=== PATIENT | female | born 1945 | race Caucasian/White ===

== ENCOUNTER 2020-05-21 14:04 | Inpatient (IN) ==
[2020-05-21] MEDS ORDERED: HYDROmorphone 1 MG/ML SYRINGE IV ONE (14:36)
--- NOTE | 2020-05-21 14:49 | Emergency Department Note ---
Lower Extremity Injury HPI General Chief Complaint: Extremity Injury, Lower Stated Complaint: Tripped, L hip pain Time Seen by Provider: 05/21/20 14:24 Source: EMS Mode of arrival: EMS History of Present Illness HPI Narrative: Narrative: 74-year-old female patient brought into the emergency department via ambulance with chief complaint of left hip pain. Patient mentions she was in her yard when her large (200 pound) Mel[place] accidentally struck her in she fell to the ground. She mentions landing on gravel and pain to her left hip.. She was unable to bear weight since that time. EMS was contacted and brought her in for evaluation. While in route she was given 100 mcg of fentanyl. Upon arrival, she denies any considerable pain to her left hip until she tries to move it. She denies hitting her head or loss of consciousness. She denies any sites of injury. She denies any previous trauma to her left hip. Related Data Home Medications Medication Instructions Recorded Confirmed cholecalciferol (vitamin D3) 125 5,000 unit PO QDAY 01/21/18 04/01/20 mcg (5,000 unit) tablet clobetasol 0.05 % scalp solution 1 applic TOPICAL BID 01/21/18 04/01/20 omega-3 fatty acids 100 mg 300 mg PO QDAY tab 02/25/18 04/01/20 chewable tablet selenium PO QDAY 02/25/18 04/01/20 zinc 50 mg tablet 50 mg PO QDAY 02/25/18 04/01/20 halobetasol propionate 0.05 % 1 applic TOPICAL BID 07/08/19 04/01/20 topical cream Previous Rx's Medication Instructions Recorded C-naltrexone 3 mg PO HS #100 cap 07/08/19 levothyroxine 88 mcg tablet 88 mcg PO .COMPLEX #90 tab 07/08/19 zolpidem 10 mg tablet 10 mg PO QHS PRN #30 tab 12/22/19 hydroxychloroquine 200 mg tablet 200 mg PO BID #180 tab 04/01/20 Allergies Allergy/AdvReac Type Severity Reaction Status Date / Time ketorolac [From Toradol] AdvReac Intermediate branch Verified 05/21/20 18:56 retinal vein occlusion triamcinolone [From Kenalog] AdvReac Intermediate branch Verified 05/21/20 18:56 retinal vein occlusion Review of Systems ROS ROS Narrative: Narrative: All systems ED: reviewed and negative except as stated. 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) Keratosis (Chronic) Hot flashes (Chronic) Elbow pain, left (Chronic) Tendinitis of left elbow (Chronic) Sinus bradycardia, chronic (Chronic) Branch retinal vein occlusion (Chronic) Knee pain, left (Chronic) Insulin resistance syndrome (Chronic) Decreased visual acuity (Chronic) Nuclear sclerosis (Chronic) Cataract, left eye (Chronic) Weight gain (Chronic) Preoperative cardiovascular examination (Chronic) Knee pain, right (Chronic) Cervical radiculopathy (Chronic) Muscle spasm (Chronic) Headache (Chronic) Disturbance of skin sensation (Chronic) Anxiety state, unspecified (Chronic) Unspecified hypothyroidism (Chronic) Low back pain (Chronic) Dyssomnia (Chronic) Hypoxemia (Chronic) Insomnia (Chronic) Obstructive sleep apnea (Chronic) Anxiety with depression (Chronic) Urinary frequency (Chronic) UTI (urinary tract infection) (Chronic) Bladder spasm (Chronic) Keysha's thyroiditis (Chronic) Hyperlipidemia (Chronic) Fluid retention (Chronic) Decreased hearing of right ear (Chronic) Ear pain, left (Chronic) Rhinitis, allergic (Chronic) Vision changes (Chronic) Encounter for long-term (current) use of medications (Chronic) Vitamin D deficiency (Chronic) Polycythemia (Chronic) Sleep apnea (Chronic) Kidney disease, chronic, stage III (GFR 30-59 ml/min) (Chronic) Hypercalcemia (Chronic) Encounter for medication counseling (Chronic) Fatigue (Chronic) SLE (systemic lupus erythematosus) (Chronic) Rash and other nonspecific skin eruption (Acute) Height loss (Chronic) Pseudophakia (Chronic) Blepharitis (Chronic) Macular edema (Chronic) Dry eye (Chronic) Rash of unknown cause (Chronic) Stress (Chronic) Leg cramps (Chronic) Heart palpitations (Chronic) Nasal congestion (Chronic) Loss of balance (Chronic) Lightheadedness (Chronic) Hypertension (Chronic) Vertigo (Chronic) Seasonal allergies (Chronic) Dizziness (Chronic) Hair loss (Chronic) Cough (Chronic) Neck swelling (Chronic) Depression (Chronic) Butterfly rash (Chronic) LIZBETH positive (Acute) Anxiety (Chronic) Sicca syndrome with keratoconjunctivitis (Chronic) Multiple joint pain (Chronic) Skin rash (Chronic) Renal insufficiency (Chronic) Cervical spine pain (Chronic) Concussion (Chronic) Thyroid nodule (Chronic) Legally blind in left eye, as defined in [place] (Chronic) Bloating (Chronic) Chronically dry eyes (Chronic) Facial rash (Chronic) Kidney disease (Chronic) Medical History LIZBETH positive (Acute) Anxiety (Chronic) Anxiety state, unspecified (Chronic) Anxiety with depression (Chronic) Asthma (Chronic) Bladder spasm (Chronic) Blepharitis (Chronic) Bloating (Chronic) Branch retinal vein occlusion (Chronic) Butterfly rash (Chronic) Cataract, left eye (Chronic) Cervical radiculopathy (Chronic) Cervical spine pain (Chronic) Chronically dry eyes (Chronic) Concussion (Chronic) Cough (Chronic) Decreased hearing of right ear (Chronic) Decreased visual acuity (Chronic) 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) Depression (Chronic) Disturbance of skin sensation (Chronic) Dizziness (Chronic) Dry eye (Chronic) Dyssomnia (Chronic) Ear pain, left (Chronic) Elbow pain, left (Chronic) Encounter for long-term (current) use of medications (Chronic) Encounter for medication counseling (Chronic) Facial rash (Chronic) Fatigue (Chronic) Fluid retention (Chronic) Hair loss (Chronic) Keysha's thyroiditis (Chronic) Headache (Chronic) Heart palpitations (Chronic) Height loss (Chronic) Hot flashes (Chronic) Hypercalcemia (Chronic) Hyperlipidemia (Chronic) Hypertension (Chronic) Hypoxemia (Chronic) Insomnia (Chronic) Insulin resistance syndrome (Chronic) Keratosis (Chronic) Kidney disease (Chronic) Kidney disease, chronic, stage III (GFR 30-59 ml/min) (Chronic) Knee pain, left (Chronic) Knee pain, right (Chronic) Leg cramps (Chronic) Legally blind in left eye, as defined in [place] (Chronic) Lightheadedness (Chronic) Loss of balance (Chronic) Low back pain (Chronic) Macular edema (Chronic) Multiple joint pain (Chronic) Muscle spasm (Chronic) Nasal congestion (Chronic) Neck swelling (Chronic) Nuclear sclerosis (Chronic) Obstructive sleep apnea (Chronic) Osteopenia (Chronic) Polycythemia (Chronic) Preoperative cardiovascular examination (Chronic) Pseudophakia (Chronic) Rash and other nonspecific skin eruption (Acute) Rash of unknown cause (Chronic) Renal insufficiency (Chronic) Rhinitis, allergic (Chronic) Seasonal allergies (Chronic) Sicca syndrome with keratoconjunctivitis (Chronic) Sinus bradycardia, chronic (Chronic) Skin rash (Chronic) SLE (systemic lupus erythematosus) (Chronic) Sleep apnea (Chronic) Stress (Chronic) Tendinitis of left elbow (Chronic) Thyroid nodule (Chronic) Unspecified hypothyroidism (Chronic) Urinary frequency (Chronic) UTI (urinary tract infection) (Chronic) Vertigo (Chronic) Vision changes (Chronic) Vitamin D deficiency (Chronic) Weight gain (Chronic) Surgical History Hx of cataract surgery (Acute) Hx of left knee surgery (Acute ~01/2016) Family History Sister Thyroid cancer Pancreatitis Mother Arthritis Father Cancer Arthritis Other Lupus Social History Smoking Status: Never smoker Alcohol Intake Frequency: does not drink Substance Use: does not use Exam Narrative Narrative: Narrative: General General appearance: Present other (Well-developed, well-nourished, 74-year-old female patient laying right lateral recumbent on the emergency room gurney in no acute distress. She is afebrile, hypertensive blood pressure 149/102, other vital signs normal.) Head Head: Present atraumatic and normocephalic Eye Eye: Present normal appearance, PERRL and EOMI; Absent scleral icterus and conjunctival injection ENT ENT: Present normal oropharynx and mucous membranes moist Neck Neck: Present normal inspection, full ROM and trachea midline; Absent tenderness and lymphadenopathy Chest Chest: Present symmetric chest wall rise Respiratory Respiratory: Present normal lung sounds bilaterally; Absent respiratory distress, wheezes, stridor, accessory muscle use and prolonged expiratory phase Cardiovascular Cardiovascular: Present regular rate and normal rhythm; Absent systolic murmur and diastolic murmur Adbominal Abdominal: Present soft; Absent distention, tenderness, guarding, rebound, rigidity, organomegaly and mass Expanded Lower Extremity Hip/Pelvis: Present normal inspection, tenderness (Tenderness to palpation to the lateral aspect of the hip joint extending down into the trochanteric bursa.), swelling and pelvis stable; Absent full ROM, abrasion, ecchymosis, deformity, crepitus, dislocation, erythema, external rotation, internal rotation and shortening Upper leg: Present normal inspection and full ROM; Absent tenderness Leg image: 1. Area of maximum pain and tenderness. Knee: Present normal inspection and full ROM; Absent tenderness Lower leg: Present normal inspection and full ROM; Absent tenderness Ankle: Present normal inspection and full ROM; Absent tenderness Foot/toe: Present normal inspection and full ROM; Absent tenderness Neurovascular/Tendon: Present normal capillary refill and motor deficit; Absent pulse deficit and sensory deficit Gait: unable to bear weight Back Back: Present normal inspection; Absent tenderness Neurological Neurological: Present alert, oriented X3, CN II-XII intact and motor sensory deficit Psychiatric Psychiatric: Present normal affect and normal mood Skin Skin: Present warm (WNL), dry and normal color Course Course Course Narrative: Patient does have considerable tenderness to palpation to the left hip joint on exam. She is unable to move her left hip through range of motion. She has exquisite tenderness when I tried to move her hip. With a mind we are going to get radiographs of the affected left hip looking for abnormality or deformity. Patient was given 100 mcg of fentanyl in route via EMS. She was given 1 g of Dilaudid IVP here prior to imaging. Reevaluation(s) Reevaluation #1: Radiographs left hip reveal a left femoral neck fracture that is displaced. After reviewing the radiograph report I reached out to the on- call orthopedic surgeon (Dr. Castrejon) just case with him. At this time Dr. Hermelinda boyd requested the patient be admitted under the hospitalist service and that he would likely come in this evening to evaluate the patient. Knowing the patient is going be admitted preoperative clearance orders were placed including EKG, chest x-ray, and routine screening laboratory work. Next, I reached out to our hospitalist (Dr. Mcdonald) discussed case with him. Time: 15:21 Reevaluation #2: At this time the hospitalist says he is willing to admit the patient here to our facility in anticipation of the orthopedic surgeon from surgery. All further treatment decisions, modalities, and ultimate patient disposition will be carried out by the hospitalist in conjunction with the orthopedic surgeon. Vital Signs Vital signs: Vital Signs Temperature 97.1 F 05/21/20 14:06 Pulse Rate 75 05/21/20 14:06 Respiratory Rate 18 05/21/20 14:06 Blood Pressure 149/102 05/21/20 14:06 Pulse Oximetry (%) 95 05/21/20 14:06 Temperature 97.5 F 05/21/20 19:26 Pulse Rate 87 05/21/20 19:26 Respiratory Rate 17 05/21/20 19:26 Blood Pressure 115/92 05/21/20 19:26 Pulse Oximetry (%) 100 05/21/20 19:26 MDM MDM Narrative Medical decision making narrative: Narrative: Lab Data Lab results reviewed: Yes I reviewed the patient's lab results. Result diagrams: 05/21/20 15:18 05/21/20 15:18 Labs: Lab Results 05/21/20 05/21/20 Range/Units 15:18 15:18 WBC 12.2 H (4.5-11.0) K/mcL RBC 5.07 (4.00-5.20) M/mcL Hgb 14.9 (12.0-15.0) g/dL Hct 46.1 (36.0-48.0) % MCV 90.9 (80.0-100.0) fL MCH 29.4 (26.0-34.0) pg MCHC 32.3 (31.0-36.0) g/dL RDW 12.8 (11.5-14.5) % Plt Count 254 (140-440) K/mcL MPV 9.4 (7.4-10.4) fL Neut % (Auto) 76.7 (38.0-78.0) % Lymph % (Auto) 14.8 L (15.0-49.0) % [place] % (Auto) 6.4 (1.0-12.0) % Eos % (Auto) 1.5 (0.0-7.0) % Baso % (Auto) 0.6 (0.0-2.0) % Lymph # (Auto) 1.81 (1.50-4.80) K/mcL [place] # (Auto) 0.78 (0.10-0.90) K/mcL Eos # (Auto) 0.18 (0.00-0.70) K/mcL Baso # (Auto) 0.07 (0.00-0.20) K/mcL Absolute Neutrophils 9.35 H (1.80-8.00) K/mcL Sodium 136 (133-145) mmol/L Potassium 3.8 (3.3-5.1) mmol/L Chloride 103 (96-108) mmol/L Carbon Dioxide 24 (22-30) mmol/L Anion Gap 9.0 (8.0-16.0) BUN 20 (8-23) mg/dL Creatinine 1.0 (0.6-1.1) mg/dL GFR Calculation 55 Glucose 134 H (70-105) mg/dL Calcium 9.3 (8.6-10.4) mg/dL Total Bilirubin 0.4 (0.1-1.0) mg/dL AST 27 (<32) U/L ALT 18 (<40) U/L Alkaline Phosphatase 96 (39-117) U/L Total Protein 6.3 (5.9-8.4) gm/dL Albumin 3.9 (3.2-5.2) gm/dL Globulin 2.4 (2.2-3.7) gm/dL Albumin/Globulin Ratio 1.6 (1.0-2.3) Radiology Data Radiology results reviewed: Yes I reviewed the patient's radiology results. Radiology results narrative: Ordering Physician: Fermin Tovar PA-C Date of Service: 05/21/20 Procedure(s): XR chest 1V Accession Number(s): [id number] CLINICAL INFORMATION: hip fx COMPARISON: 02/11/2009 FINDINGS: Heart is mildly enlarged. Mediastinum and pulmonary vessels are normal. Small calcified granulomas in the perihilar regions again noted. No infiltrates or effusions. Bones soft tissues normal IMPRESSION: No acute disease Ordering Physician: Fermin Tovar PA-C Date of Service: 05/21/20 Procedure(s): XR hip LT comp 2VW Accession Number(s): [id number] CLINICAL INFORMATION: Trauma now with left hip pain COMPARISON: None. FINDINGS: Oblique transcervical fracture the left hip appreciated. The trochanteric region is displaced approximately 1 cm superiorly respect to the femoral head neck fragment. There is mild angulation deformity. Mild degenerative changes noted both SI and hip joints. Soft tissues normal IMPRESSION: Angulated, displaced oblique fracture through left femoral neck Interpreted and Authenticated by: Almas Sanchez 05/21/20 Discharge Plan Patient/Caregiver Discharge Instructions Pt seen by [facility]ER/PA only: Yes Clinical Impression: Closed fracture of left hip, Fall from standing Patient Disposition: Xfer As Inpt ([facility]) Condition: Good Discharge Date/Time: 05/21/20 16:47 Discharge Comment: to surgery
--- NOTE | 2020-05-21 15:11 | XRay Report ---
CLINICAL INFORMATION: hip fx COMPARISON: 02/11/2009 FINDINGS: Heart is mildly enlarged. Mediastinum and pulmonary vessels are normal. Small calcified granulomas in the perihilar regions again noted. No infiltrates or effusions. Bones soft tissues normal IMPRESSION: No acute disease Interpreted and Authenticated by: Almas Sanchez 05/21/20
--- NOTE | 2020-05-21 15:12 | XRay Report ---
CLINICAL INFORMATION: Trauma now with left hip pain COMPARISON: None. FINDINGS: Oblique transcervical fracture the left hip appreciated. The trochanteric region is displaced approximately 1 cm superiorly respect to the femoral head neck fragment. There is mild angulation deformity. Mild degenerative changes noted both SI and hip joints. Soft tissues normal IMPRESSION: Angulated, displaced oblique fracture through left femoral neck Interpreted and Authenticated by: Almas Sanchez 05/21/20
--- NOTE | 2020-05-21 15:43 | Internal Med History&Physical ---
HPI History of Present Illness Patient information: Note initiated : 05/21/20 at 3:38 pm Service Date, if different from initiated Date: [] Patient: Amarilys George a 74 y/o F admitted on for Tripped, L hip pain. Chief Complaint: [] History of present illness: Ms. George is a 74 year old F Presents to the ED with left hip pain. Patient was outside when 200 pound dog bumped her and she fell onto gravel with immediate pain to the left hip. Evaluated in the ED and found to have a left hip fracture. Case was discussed with Dr. Castrejon who will come evaluate patient for surgical intervention. Patient pain is relatively well controlled in the ED on pain medications. No other acute complaints no chest pain shortness of breath. No stomach pain. Review of Systems: Pertinent positives as above. Denies headache/fever/chills/nausea/vomiting/ chest or abdominal pain/cough/dyspnea/diarrhea. 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) Keratosis (Chronic) Hot flashes (Chronic) Elbow pain, left (Chronic) Tendinitis of left elbow (Chronic) Sinus bradycardia, chronic (Chronic) Branch retinal vein occlusion (Chronic) Knee pain, left (Chronic) Insulin resistance syndrome (Chronic) Decreased visual acuity (Chronic) Nuclear sclerosis (Chronic) Cataract, left eye (Chronic) Weight gain (Chronic) Preoperative cardiovascular examination (Chronic) Knee pain, right (Chronic) Cervical radiculopathy (Chronic) Muscle spasm (Chronic) Headache (Chronic) Disturbance of skin sensation (Chronic) Anxiety state, unspecified (Chronic) Unspecified hypothyroidism (Chronic) Low back pain (Chronic) Dyssomnia (Chronic) Hypoxemia (Chronic) Insomnia (Chronic) Obstructive sleep apnea (Chronic) Anxiety with depression (Chronic) Urinary frequency (Chronic) UTI (urinary tract infection) (Chronic) Bladder spasm (Chronic) Kyesha's thyroiditis (Chronic) Hyperlipidemia (Chronic) Fluid retention (Chronic) Decreased hearing of right ear (Chronic) Ear pain, left (Chronic) Rhinitis, allergic (Chronic) Vision changes (Chronic) Encounter for long-term (current) use of medications (Chronic) Vitamin D deficiency (Chronic) Polycythemia (Chronic) Sleep apnea (Chronic) Kidney disease, chronic, stage III (GFR 30-59 ml/min) (Chronic) Hypercalcemia (Chronic) Encounter for medication counseling (Chronic) Fatigue (Chronic) SLE (systemic lupus erythematosus) (Chronic) Rash and other nonspecific skin eruption (Acute) Height loss (Chronic) Pseudophakia (Chronic) Blepharitis (Chronic) Macular edema (Chronic) Dry eye (Chronic) Rash of unknown cause (Chronic) Stress (Chronic) Leg cramps (Chronic) Heart palpitations (Chronic) Nasal congestion (Chronic) Loss of balance (Chronic) Lightheadedness (Chronic) Hypertension (Chronic) Vertigo (Chronic) Seasonal allergies (Chronic) Dizziness (Chronic) Hair loss (Chronic) Cough (Chronic) Neck swelling (Chronic) Depression (Chronic) Butterfly rash (Chronic) LIZBETH positive (Acute) Anxiety (Chronic) Sicca syndrome with keratoconjunctivitis (Chronic) Multiple joint pain (Chronic) Skin rash (Chronic) Renal insufficiency (Chronic) Cervical spine pain (Chronic) Concussion (Chronic) Thyroid nodule (Chronic) Legally blind in left eye, as defined in [place] (Chronic) Bloating (Chronic) Chronically dry eyes (Chronic) Facial rash (Chronic) Kidney disease (Chronic) Medical History LIZBETH positive (Acute) Anxiety (Chronic) Anxiety state, unspecified (Chronic) Anxiety with depression (Chronic) Asthma (Chronic) Bladder spasm (Chronic) Blepharitis (Chronic) Bloating (Chronic) Branch retinal vein occlusion (Chronic) Butterfly rash (Chronic) Cataract, left eye (Chronic) Cervical radiculopathy (Chronic) Cervical spine pain (Chronic) Chronically dry eyes (Chronic) Concussion (Chronic) Cough (Chronic) Decreased hearing of right ear (Chronic) Decreased visual acuity (Chronic) 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) Depression (Chronic) Disturbance of skin sensation (Chronic) Dizziness (Chronic) Dry eye (Chronic) Dyssomnia (Chronic) Ear pain, left (Chronic) Elbow pain, left (Chronic) Encounter for long-term (current) use of medications (Chronic) Encounter for medication counseling (Chronic) Facial rash (Chronic) Fatigue (Chronic) Fluid retention (Chronic) Hair loss (Chronic) Keysha's thyroiditis (Chronic) Headache (Chronic) Heart palpitations (Chronic) Height loss (Chronic) Hot flashes (Chronic) Hypercalcemia (Chronic) Hyperlipidemia (Chronic) Hypertension (Chronic) Hypoxemia (Chronic) Insomnia (Chronic) Insulin resistance syndrome (Chronic) Keratosis (Chronic) Kidney disease (Chronic) Kidney disease, chronic, stage III (GFR 30-59 ml/min) (Chronic) Knee pain, left (Chronic) Knee pain, right (Chronic) Leg cramps (Chronic) Legally blind in left eye, as defined in [place] (Chronic) Lightheadedness (Chronic) Loss of balance (Chronic) Low back pain (Chronic) Macular edema (Chronic) Multiple joint pain (Chronic) Muscle spasm (Chronic) Nasal congestion (Chronic) Neck swelling (Chronic) Nuclear sclerosis (Chronic) Obstructive sleep apnea (Chronic) Osteopenia (Chronic) Polycythemia (Chronic) Preoperative cardiovascular examination (Chronic) Pseudophakia (Chronic) Rash and other nonspecific skin eruption (Acute) Rash of unknown cause (Chronic) Renal insufficiency (Chronic) Rhinitis, allergic (Chronic) Seasonal allergies (Chronic) Sicca syndrome with keratoconjunctivitis (Chronic) Sinus bradycardia, chronic (Chronic) Skin rash (Chronic) SLE (systemic lupus erythematosus) (Chronic) Sleep apnea (Chronic) Stress (Chronic) Tendinitis of left elbow (Chronic) Thyroid nodule (Chronic) Unspecified hypothyroidism (Chronic) Urinary frequency (Chronic) UTI (urinary tract infection) (Chronic) Vertigo (Chronic) Vision changes (Chronic) Vitamin D deficiency (Chronic) Weight gain (Chronic) Surgical History Hx of cataract surgery (Acute) Hx of left knee surgery (Acute ~01/2016) Family History Sister Thyroid cancer Pancreatitis Mother Arthritis Father Cancer Arthritis Other Lupus Social History marital status: occupational status: retired smoking status: Never smoker alcohol intake frequency: does not drink substance use type: does not use MEDS/ALLERGIES Home Medications and Allergies Home Medications Medication Instructions Recorded Confirmed Type cholecalciferol (vitamin D3) 125 5,000 unit PO QDAY 01/21/18 04/01/20 History mcg (5,000 unit) tablet clobetasol 0.05 % scalp solution 1 applic TOPICAL BID 01/21/18 04/01/20 History omega-3 fatty acids 100 mg 300 mg PO QDAY tab 02/25/18 04/01/20 History chewable tablet selenium PO QDAY 02/25/18 04/01/20 History zinc 50 mg tablet 50 mg PO QDAY 02/25/18 04/01/20 History C-naltrexone 3 mg PO HS #100 cap 07/08/19 04/01/20 Rx halobetasol propionate 0.05 % 1 applic TOPICAL BID 07/08/19 04/01/20 History topical cream levothyroxine 88 mcg tablet 88 mcg PO .COMPLEX #90 tab 07/08/19 04/01/20 Rx zolpidem 10 mg tablet 10 mg PO QHS PRN #30 tab 12/22/19 04/01/20 Rx hydroxychloroquine 200 mg tablet 200 mg PO BID #180 tab 04/01/20 04/01/20 Rx Allergies Allergy/AdvReac Type Severity Reaction Status Date / Time ketorolac [From Toradol] AdvReac Unknown branch Verified 04/01/20 07:38 retinal vein occlusion triamcinolone [From Kenalog] AdvReac Unknown branch Verified 04/01/20 07:38 retinal vein occlusion EXAM Constitutional Vitals: Temp Pulse Resp BP Pulse Ox 97.1 F 75 18 149/102 95 05/21/20 14:06 05/21/20 14:06 05/21/20 14:06 05/21/20 14:06 05/21/20 14:06 Exam: General: Alert, Awake, No acute Distress Eyes/N/T: EOMI, PERRL, Head/Neck: neck supple, normocephalic atraumatic CV: RRR, No murmurs, normal s1/s2 Pulm: Clear b/l, no wheezing/rhonchi/rales Abd: soft, nontender, +BS x4 Ext: no clubbing/cyanosis/edema Neuro: Alert, no focal deficits, moves all extremities, CN 2-12 grossly intact, left leg externally rotated, sensations intact b/l upper/lower Skin: warm/dry DATA Data Completed and Pending Labs: Labs from last 24 hours 05/21/20 05/21/20 15:18 15:18 WBC Pending RBC Pending Hgb Pending Hct Pending MCV Pending MCH Pending MCHC Pending RDW Pending Plt Count Pending MPV Pending Neut % (Auto) Pending Sodium Pending Potassium Pending Chloride Pending Carbon Dioxide Pending Anion Gap Pending BUN Pending Creatinine Pending GFR Calculation Pending Glucose Pending Calcium Pending Total Bilirubin Pending AST Pending ALT Pending Alkaline Phosphatase Pending Total Protein Pending Albumin Pending Globulin Pending Albumin/Globulin Ratio Pending A/P Narrative A/P Narrative: A: *Left hip fracture: *SLE: On hydroxychloroquine *Hypothyroidism: Levothyroxine * P: -Dr. Castrejon for orthopedic surgery -Pain control -PT OT - -ppx: Postop per Ortho Full code Time Spent With Patient Time: Total time spent is greater than 50% in coordination of care (as documented) at patient's floor/unit and/or counseling patient:
[2020-05-21 15:59] LABS: Basophils # (Auto) 0.07 K/mcL (0.00-0.20); Basophils % (Auto) 0.6 % (0.0-2.0); Eosinophils # (Auto) 0.18 K/mcL (0.00-0.70); Eosinophils % (Auto) 1.5 % (0.0-7.0); Hematocrit 46.1 % (36.0-48.0); Hemoglobin 14.9 g/dL (12.0-15.0); Lymphocytes # (Auto) 1.81 K/mcL (1.50-4.80); Lymphocytes % (Auto) 14.8 % (15.0-49.0); Mean Cell Volume 90.9 fL (80.0-100.0); Mean Corpuscular HGB Conc 32.3 g/dL (31.0-36.0); Mean Platelet Volume 9.4 fL (7.4-10.4); Monocytes # (Auto) 0.78 K/mcL (0.10-0.90); Monocytes % (Auto) 6.4 % (1.0-12.0); Neutrophils % (Auto) 76.7 % (38.0-78.0); Platelet Count 254 K/mcL (140-440); RBC 5.07 M/mcL (4.00-5.20); Red Cell Distribution Width 12.8 % (11.5-14.5); WBC 12.2 K/mcL (4.5-11.0)
[2020-05-21 16:02] LABS: ALT/SGPT 18 U/L (<40); AST/SGOT 27 U/L (<32); Albumin 3.9 gm/dL (3.2-5.2); Albumin/Globulin Ratio 1.6 (1.0-2.3); Alkaline Phosphatase 96 U/L (39-117); Bilirubin,Total 0.4 mg/dL (0.1-1.0); Blood Urea Nitrogen 20 mg/dL (8-23); Calcium 9.3 mg/dL (8.6-10.4); Carbon Dioxide 24 mmol/L (22-30); Chloride 103 mmol/L (96-108); Globulin 2.4 gm/dL (2.2-3.7); Glomerular Filtration Rate 55; Glucose 134 mg/dL (70-105)
[2020-05-21] MEDS ORDERED: LIDOCAINE HCL/PF 100 MG/5 ML SYRINGE IV ONE (17:00)
[2020-05-21] MEDS ORDERED: ESMOLOL 100 MG/10 ML VIAL IV ONE (17:00)
[2020-05-21] MEDS ORDERED: TRANEXAMIC ACID 1,000 MG/10 ML VIAL IV ONE ×2 (17:00→20:10)
[2020-05-21] MEDS ORDERED: fentaNYL 100 MCG/2 ML VIAL IV ONE (17:00)
[2020-05-21] MEDS ORDERED: PROPOFOL 200 MG/20 ML VIAL IV ONE (17:00)
[2020-05-21] MEDS ORDERED: GLYCOPYRROLATE 0.2 MG/ML VIAL IV ONE (17:00)
[2020-05-21] MEDS ORDERED: ONDANSETRON 4 MG/2 ML VIAL ONE (17:00)
[2020-05-21] MEDS ORDERED: KETAMINE 100 MG/ML ML ONE (17:00)
[2020-05-21] MEDS ORDERED: MIDAZOLAM 2 MG/2 ML VIAL ONE (17:00)
[2020-05-21] MEDS ORDERED: DEXAMETHASONE 10 MG/ML VIAL ONE (17:00)
[2020-05-21] MEDS ORDERED: ONDANSETRON 4 MG/2 ML VIAL IV PRN ×2 (18:08→20:10)
[2020-05-21] MEDS ORDERED: ACETAMINOPHEN 1,000 MG/100 ML BAG IV ONE (18:08)
[2020-05-21] MEDS ORDERED: IPRATROPIUM/ALBUTEROL 3 ML AMPUL.NEB NEB PRN (18:08)
[2020-05-21] MEDS ORDERED: BENZOCAINE/MENTHOL 1 LOZENGE PO PRN (18:08)
[2020-05-21] MEDS ORDERED: METHOCARBAMOL 1,000 MG/10 ML VIAL IV PRN (18:08)
[2020-05-21] MEDS ORDERED: fentaNYL 100 MCG/2 ML VIAL IV PRN (18:08)
[2020-05-21] MEDS ORDERED: LACTATED RINGERS 1,000 ML IV SCH (18:15)
[2020-05-21] MEDS ORDERED: VANCOMYCIN 1 GM VIAL TOPICAL SCH (18:30)
--- NOTE | 2020-05-21 18:30 | Brief Operative Note ---
Brief Operative Note Date of procedure: 05/21/20 Pre-op diagnosis: left displaced femoral neck fracture Post-op diagnosis: same Procedure: left alonso hip arthroplasty Grafts/Implants: Yes Anesthesia: GETA Findings: dispalced femoral neck fracture Complications: none Surgeon: Pepito Castrejon Mine Foreman: Julian Clark Estimated blood loss (cc): 275 Specimens Removed/Pathology: none sent Condition: stable Disposition: PACU
[2020-05-21] MEDS: MEPERIDINE 25 MG/ML SYRINGE IV PRN ×2 (19:13→19:21)
--- NOTE | 2020-05-21 19:13 | Consultation ---
DATE OF CONSULTATION: 05/21/2020 REASON FOR CONSULTATION: Left hip fracture. CONSULTING PROVIDER: [facility] provider at [facility]. HISTORY OF PRESENT ILLNESS: The patient is a 74-year-old female who earlier this afternoon was out in her yard when her dog ran into her resulting in a fall onto her left hip. She had immediate pain and inability to bear weight and was brought to the Emergency Department for further evaluation. She was found to have a displaced femoral neck fracture. Otherwise, she has no complaints on presentation. She denies any numbness or tingling to the extremity. PAST MEDICAL HISTORY: Significant for asthma; multiple joint pain; low back pain; chronic sinus bradycardia; in her chart is insulin resistant syndrome, however, she does not state that she is diabetic; obesity; anxiety; hypothyroidism; chronic kidney disease; sleep apnea; and lupus. PAST SURGICAL HISTORY: Bilateral total knee arthroplasties by Dr. Layton in [place], lumbar fusion, cataract surgery. MEDICATIONS: She takes vitamin D, clobetasol, omega 3, selenium, zinc, levothyroxine, zolpidem, hydroxychloroquine. ALLERGIES: TRIAMCINOLONE AND TORADOL. REVIEW OF SYSTEMS: A 10-point review of systems otherwise negative. SOCIAL HISTORY: She does reside with her locally. FAMILY HISTORY: Noncontributory. PHYSICAL EXAMINATION: GENERAL: She is alert, oriented, interactive, and appropriate. She does not appear to be in acute distress. VITAL SIGNS: She is afebrile, temperature 97.1, heart rate 75, blood pressure 140s over low 100s, pulse ox 95% on room air. MUSCULOSKELETAL: Examination reveals focal injury to her left hip. Her left lower extremity is shortened and externally rotated for position of comfort. The skin is intact about the hip itself. There is a well-healed incision midline about the knee itself. There is no joint effusion. There is no deformity about the leg, ankle, or foot. Her foot is warm and well perfused and sensation intact. She had imaging which demonstrates displaced left femoral neck fracture. LABORATORY DATA: CBC: She has a white count of 12, H and H of 14.9 and 46.1. CBC demonstrates a creatinine of 1, glucose 134. ASSESSMENT AND PLAN: This is a 74-year-old female with several medical issues with a displaced left femoral neck fracture from an acute fall. Discussed the diagnosis with her as well as treatment options. My recommendation would be for a left alonso-hip arthroplasty. I discussed the risk of the surgery to include bleeding, infection, long-term can develop acetabular wear requiring a total hip arthroplasty, also can have a chronic limp or weakness which she does understand. Dislocation was also discussed which does have a lower dislocation rate with a hemiarthroplasty rather than a total hip arthroplasty, especially in the setting of lumbar fusion, which does she have. She does understand all these. She does want to proceed in this fashion. The plan will be for left alonso-hip arthroplasty later on today. We will discuss the possibility to ensure there is no other preoperative treatment or optimization prior to proceeding with surgery. DLW:[email or web address] Job ID: [id number] Doc ID: [id number] Pepito Castrejon MD [facility]
--- NOTE | 2020-05-21 19:38 | General Surgery Progress Note ---
Surgical - Auxillary Note - Subjective Patient Information: Note initiated : 05/21/20 at 7:28 pm Service Date, if different from initiated Date: [] Patient: Amarilys George 74 y/o F admitted on for Tripped, L hip pain. Chief Complaint: [intraop emesis shortly after incision, pt had emesis, mod volume, bilious, on LMA. Noted immediately and with aggressive supportive management. No desats or labored breathing. PACU wo problems, CXR looks good, good sats on min O2 per NC, no labored breathing. Hospitalist notified. Surgeon aware. To floor stable. DIETER]
[2020-05-21] MEDS ORDERED: POLYETHYLENE GLYCOL 3350 17 GM PACKET PO PRN (20:10)
[2020-05-21] MEDS ORDERED: HYDROcodone/APAP 5/325MG TABLET PO PRN (20:10)
[2020-05-21] MEDS ORDERED: POTASSIUM CHLORIDE 20 MEQ TABLET PO PRN ×2 (20:10)
[2020-05-21] MEDS ORDERED: POTASSIUM CHLORIDE 40 MEQ in DEXTROSE 5% IN WATER 500 ML IV PRN (20:10)
[2020-05-21] MEDS ORDERED: 0.9 % SODIUM CHLORIDE 1,000 ML IV SCH (20:10)
[2020-05-21] MEDS ORDERED: SENNOSIDES 1 TABLET PO PRN (20:10)
[2020-05-21] MEDS ORDERED: MAGNESIUM SULFATE 2 GM/50 ML BAG IV PRN (20:10)
[2020-05-21] MEDS ORDERED: ACETAMINOPHEN 325 MG TABLET PO PRN (20:10)
[2020-05-21] MEDS: morphine 4 MG/ML VIAL IV PRN (20:25)
[2020-05-21] MEDS ORDERED: morphine 4 MG/ML VIAL ONE (20:29)
[2020-05-21] MEDS: HYDROcodone/APAP 5/325MG TABLET PO ONE ×2 (21:55→21:57)
[2020-05-21] MEDS ORDERED: BENZOCAINE/MENTHOL 1 LOZENGE PO ONE (22:54)
[2020-05-21] MEDS: BENZOCAINE/MENTHOL 1 LOZENGE PO PRN (23:02)
[2020-05-21] MEDS: DOCUSATE SODIUM 100 MG CAPSULE PO SCH (23:03)
[2020-05-21] MEDS: 0.9 % SODIUM CHLORIDE 10 ML SYRINGE IV SCH (23:03)
[2020-05-22] MEDS ORDERED: morphine 4 MG/ML VIAL ONE ×2 (00:35→04:18)
[2020-05-22] MEDS: morphine 4 MG/ML VIAL IV PRN ×2 (00:37→04:17)
[2020-05-22 03:43] LABS: Appearance,Urine CLEAR (Clear); Bilirubin,Urine Negative (Negative); Color,Urine YELLOW; Culture Indicated,Urine No; Glucose,Urine (UA) Negative (Negative); Ketones,Urine Negative (Negative); Leukocyte Esterase,Urine Negative /ug (Negative); Mucus,Urine FEW /hpf; Nitrate,Urine Negative (Negative); Protein,Urine Negative (Negative); Specific Gravity,Urine 1.019 (1.000-1.035); Urine Blood 0.03 mg/dL (Negative); Urine RBC 17 /hpf (0-3); Urine Squamous Epithelial Cell < 1 /hpf (0-4); Urine WBC 1 /hpf (0-4); Urobilinogen,Urine Negative
[2020-05-22] MEDS: 0.9 % SODIUM CHLORIDE 10 ML SYRINGE IV SCH ×3 (04:18→20:34)
--- NOTE | 2020-05-22 04:50 | XRay Report ---
CLINICAL INFORMATION: s/p left alonso hip arthroplasty COMPARISON: None. FINDINGS: Left hemiarthroplasty component is anatomically aligned. No osseous abnormality. Minimal degenerative change seen in the SI joints right hip normal. IMPRESSION: Left hemiarthroplasty anatomically aligned Interpreted and Authenticated by: Almas Sanchez 05/22/20
--- NOTE | 2020-05-22 05:13 | XRay Report ---
CLINICAL INFORMATION: intraop emesis under anesthesia COMPARISON: 05/21/2020 FINDINGS: Mild cardiomegaly is unchanged. Mediastinum and pulmonary vessels are normal. Scattered small calcified granulomas in both perihilar regions. Small vague right basilar infiltrate is new IMPRESSION: Small vague right basilar infiltrate which could indicate aspiration. Interpreted and Authenticated by: Almas Sanchez 05/22/20
[2020-05-22] MEDS: BENZOCAINE/MENTHOL 1 LOZENGE PO PRN ×2 (05:25→14:50)
[2020-05-22] MEDS ORDERED: BENZOCAINE/MENTHOL 1 LOZENGE PO ONE (05:29)
[2020-05-22] MEDS ORDERED: METHOCARBAMOL 750 MG TABLET PO PRN (06:11)
[2020-05-22 06:36] LABS: Basophils # (Auto) 0.02 K/mcL (0.00-0.20); Basophils % (Auto) 0.1 % (0.0-2.0); Eosinophils # (Auto) 0 K/mcL (0.00-0.70); Eosinophils % (Auto) 0 % (0.0-7.0); Hematocrit 37.4 % (36.0-48.0); Lymphocytes # (Auto) 1.08 K/mcL (1.50-4.80); Lymphocytes % (Auto) 7.1 % (15.0-49.0); Mean Cell Volume 92.1 fL (80.0-100.0); Mean Corpuscular HGB Conc 32.1 g/dL (31.0-36.0); Mean Platelet Volume 9.3 fL (7.4-10.4); Monocytes # (Auto) 0.89 K/mcL (0.10-0.90); Monocytes % (Auto) 5.9 % (1.0-12.0); Neutrophils % (Auto) 86.9 % (38.0-78.0); Platelet Count 266 K/mcL (140-440); RBC 4.06 M/mcL (4.00-5.20); Red Cell Distribution Width 12.9 % (11.5-14.5); WBC 15.1 K/mcL (4.5-11.0)
--- NOTE | 2020-05-22 06:54 | Orthopedic Progress Note ---
SUBJECTIVE Subjective Patient information: Note initiated : 05/22/20 at 6:49 am Service Date, if different from initiated Date: [] Patient: Amarilys George 74 y/o F admitted on 05/21/20 for Tripped, L hip pain. Chief Complaint: [No acute events overnight. Pain is controlled. Has not been out of bed. No chest pain/shortness of breath] Constitutional Vitals: Vital Signs Temp Pulse Resp BP Pulse Ox 97.7 F 69 16 102/57 95 05/22/20 04:23 05/22/20 04:23 05/22/20 04:23 05/22/20 04:23 05/22/20 04:23 Period Temp Pulse Resp BP Sys/Colón Pulse Ox Last 24 Hr 96.5 F-97.8 F 69-103 12-25 102-149/49-102 91-100 Intake and Output 05/21/20 05/22/20 05/22/20 21:59 05:59 13:59 Intake Total 1700 800 Output Total 600 500 Balance 1100 300 Weight 158 lb 8 oz Intake & Output: Intake & Output 05/21/20 05/22/20 05/22/20 21:59 05:59 13:59 Intake Total 1700 800 Output Total 600 500 Balance 1100 300 Weight 158 lb 8 oz Intake: IV 100 Oral 800 IV - Manual Only 1600 Output: Urine Catheter Amount 600 500 Other: Urine Appearance Uretheral (Paiz) Clear Urine Color Uretheral (Paiz) Straw Additional findings Additional findings: General: awake, alert and oriented Left hip: dressing saturated. otherwise leg is warm well perfused, sensation is intact throughout extremity. OBJ DATA Labs CBC & Chem 7: 05/22/20 05:14 05/21/20 15:18 Labs: Abnormal Lab Results 05/22/20 05/22/20 05/21/20 05:14 00:45 15:18 WBC 15.1 H Neut % (Auto) 86.9 H Lymph % (Auto) 7.1 L Lymph # (Auto) 1.08 L Absolute Neutrophils 13.13 H Glucose 134 H Urine RBC 17 H Urine Mucus Few A 05/21/20 15:18 WBC 12.2 H Neut % (Auto) Lymph % (Auto) 14.8 L Lymph # (Auto) Absolute Neutrophils 9.35 H Glucose Urine RBC Urine Mucus Meds: Medications Acetaminophen (Tylenol) 1,000 mg PO Q8 [facility] Docusate Sodium (Colace) 100 mg PO BID [facility] Last Admin: 05/21/20 23:03 Dose: Not Given Documented by: Potassium Chloride 40 meq/ (Dextrose) 520 mls @ 130 mls/hr IV UD PRN PRN Reason: Potassium < 3 Magnesium Sulfate (Magnesium Sulfate) 2 gm in 50 mls @ 50 mls/hr IV UD PRN PRN Reason: Magnesium </= 1.6 Sodium Chloride (Sodium Chloride 0.9%) 1,000 mls @ 75 mls/hr IV .[id number] [facility] Stop: 05/22/20 09:29 Last Admin: 05/21/20 20:25 Dose: 75 mls/hr Documented by: Methocarbamol (Robaxin) 750 mg PO Q6HP PRN PRN Reason: Muscle Spasm Non-Formulary Medication (Eliqis) 2.5 mg PO BID [facility] Ondansetron HCl (Zofran) 4 mg IV Q4HP PRN PRN Reason: Nausea And Vomiting Oxycodone HCl (Roxicodone) 5 - 10 mg PO Q4HP PRN; Protocol PRN Reason: Per Pain Protocol Polyethylene Glycol (Miralax) 17 gm PO DAILYP PRN PRN Reason: Constipation Potassium Chloride (Kdur) 40 meq PO UD PRN PRN Reason: Potssium is 3-3.5 Potassium Chloride (Kdur) 40 meq PO UD PRN PRN Reason: Potassium < 3 Senna (Senokot) 2 tab PO DAILYP PRN PRN Reason: Constipation Sodium Chloride (Saline Flush) 10 ml IV Q8 [facility] Last Admin: 05/22/20 04:18 Dose: 10 ml Documented by: Throat Lozenges (Cepacol) 1 lozenge PO PRN PRN PRN Reason: Sore Throat Last Admin: 05/22/20 05:25 Dose: 1 lozenge Documented by: Tranexamic Acid (Tranexamic Acid) 1,000 mg IV ONCE ONE Stop: 05/21/20 20:11 Last Admin: 05/21/20 21:15 Dose: Not Given Documented by: A/P Assessment and plan (1) Closed fracture of left hip: Status: Acute Comment: POD 1 s/p left hip alonso arthroplasty -- dressing saturated - changed and hip spica dressing applied was able to stand for quite some time but did get dizzy at the end. -- weight bearing as tolerated with posterior hip precautions x6 weeks ---- PT/OT -- changed to oral pain medications and muscle relaxer -- oral diet -- labs reviewed with h/h acceptable -- prophy: IS, eliquis tonight unless dressing saturated then will hold off, ambulation, foot pumps -- dispo: pending Qualifiers: Encounter type: initial encounter Qualified Code(s): S72.002A - Fracture of unspecified part of neck of left femur, initial encounter for closed fracture Time Spent With Patient Time: Total time spent is greater than 50% in coordination of care (as documented) at patient's floor/unit and/or counseling patient:
[2020-05-22 07:09] LABS: ALT/SGPT 20 U/L (<40); AST/SGOT 31 U/L (<32); Albumin 3.3 gm/dL (3.2-5.2); Albumin/Globulin Ratio 1.6 (1.0-2.3); Alkaline Phosphatase 75 U/L (39-117); Bilirubin,Direct < 0.2 mg/dL (<0.3); Bilirubin,Total 0.5 mg/dL (0.1-1.0); Blood Urea Nitrogen 17 mg/dL (8-23); Calcium 9.2 mg/dL (8.6-10.4); Carbon Dioxide 26 mmol/L (22-30); Chloride 102 mmol/L (96-108); Globulin 2.1 gm/dL (2.2-3.7); Glomerular Filtration Rate 62; Glucose 123 mg/dL (70-105); Lactate Dehydrogenase 236 U/L (135-225); Phosphorous 3.5 mg/dL (2.5-4.5); Triglycerides 45 mg/dL (<150); Uric Acid 5.4 mg/dL (2.5-8.0)
[2020-05-22] MEDS ORDERED: 0.9 % SODIUM CHLORIDE 500 ML IV ONE (07:16)
--- NOTE | 2020-05-22 07:26 | Internal Med Progress Note ---
SUBJECTIVE Subjective Patient information: Note initiated : 05/22/20 at 7:23 am Service Date, if different from initiated Date: [] Patient: Amarilys George a 74 y/o F admitted on 05/21/20 for Tripped, L hip pain. Chief Complaint: [] Interval history: History of present illness: Ms. George is a 74 year old F Presents to the ED with left hip pain. Patient was outside when 200 pound dog bumped her and she fell onto gravel with immediate pain to the left hip. Evaluated in the ED and found to have a left hip fracture. Case was discussed with Dr. Castrejon who will come evaluate patient for surgical intervention. Patient pain is relatively well controlled in the ED on pain medications. No other acute complaints no chest pain shortness of breath. No stomach pain. 05/22 felt lightheaded this morning when she got up. no other complaints overnight events. Review of Systems: denies headache/fever/chills/nausea/vomiting/chest or abdominal gino n/cough/dyspnea/diarrhea. Otherwise see above. Constitutional Vitals: Vital Signs Temp Pulse Resp BP Pulse Ox 97.5 F 62 14 82/51 95 05/22/20 07:08 05/22/20 07:08 05/22/20 07:08 05/22/20 07:08 05/22/20 07:08 Period Temp Pulse Resp BP Sys/Colón Pulse Ox Last 24 Hr 96.5 F-97.8 F 62-103 12-25 82-149/49-102 91-100 Intake and Output 05/21/20 05/22/20 05/22/20 21:59 05:59 13:59 Intake Total 1700 800 Output Total 600 500 Balance 1100 300 Weight 71.894 kg Intake & Output: Intake & Output 05/21/20 05/22/20 05/22/20 21:59 05:59 13:59 Intake Total 1700 800 Output Total 600 500 Balance 1100 300 Weight 71.894 kg Intake: IV 100 Oral 800 IV - Manual Only 1600 Output: Urine Catheter Amount 600 500 Other: Urine Appearance Uretheral (Paiz) Clear Urine Color Uretheral (Paiz) Straw Exam: General: Alert, Awake, No acute Distress Eyes/N/T: EOMI, Head/Neck: neck supple, CV: RRR, No murmurs, Pulm: Clear b/l, no wheezing/rhonchi/rales Abd: soft, nontender, +BS x4 Ext: no clubbing/cyanosis/edema Neuro: Alert, no focal deficits, moves all extremities, Skin: warm/dry OBJ DATA Labs CBC & Chem 7: 05/22/20 05:14 05/22/20 05:14 Labs: Abnormal Lab Results 05/22/20 05/22/20 05/22/20 05:14 05:14 00:45 WBC 15.1 H Neut % (Auto) 86.9 H Lymph % (Auto) 7.1 L Lymph # (Auto) 1.08 L Absolute Neutrophils 13.13 H Anion Gap 7.0 L Glucose 123 H Lactate Dehydrogenase 236 H Total Protein 5.4 L Globulin 2.1 L Urine RBC 17 H Urine Mucus Few A 05/21/20 05/21/20 15:18 15:18 WBC 12.2 H Neut % (Auto) Lymph % (Auto) 14.8 L Lymph # (Auto) Absolute Neutrophils 9.35 H Anion Gap Glucose 134 H Lactate Dehydrogenase Total Protein Globulin Urine RBC Urine Mucus Meds: Medications Acetaminophen (Tylenol) 1,000 mg PO Q8 [facility] Docusate Sodium (Colace) 100 mg PO BID [facility] Last Admin: 05/21/20 23:03 Dose: Not Given Documented by: Potassium Chloride 40 meq/ (Dextrose) 520 mls @ 130 mls/hr IV UD PRN PRN Reason: Potassium < 3 Magnesium Sulfate (Magnesium Sulfate) 2 gm in 50 mls @ 50 mls/hr IV UD PRN PRN Reason: Magnesium </= 1.6 Sodium Chloride (Sodium Chloride 0.9%) 1,000 mls @ 75 mls/hr IV .[id number] [facility] Stop: 05/22/20 09:29 Last Admin: 05/21/20 20:25 Dose: 75 mls/hr Documented by: Sodium Chloride (Sodium Chloride 0.9%) 500 mls @ 0 mls/hr IV [facility] ONE Stop: 05/22/20 07:17 Last Admin: 05/22/20 07:19 Dose: 999 mls/hr Documented by: Methocarbamol (Robaxin) 750 mg PO Q6HP PRN PRN Reason: Muscle Spasm Non-Formulary Medication (Eliqis) 2.5 mg PO BID [facility] Ondansetron HCl (Zofran) 4 mg IV Q4HP PRN PRN Reason: Nausea And Vomiting Oxycodone HCl (Roxicodone) 5 - 10 mg PO Q4HP PRN; Protocol PRN Reason: Per Pain Protocol Polyethylene Glycol (Miralax) 17 gm PO DAILYP PRN PRN Reason: Constipation Potassium Chloride (Kdur) 40 meq PO UD PRN PRN Reason: Potssium is 3-3.5 Potassium Chloride (Kdur) 40 meq PO UD PRN PRN Reason: Potassium < 3 Senna (Senokot) 2 tab PO DAILYP PRN PRN Reason: Constipation Sodium Chloride (Saline Flush) 10 ml IV Q8 [facility] Last Admin: 05/22/20 04:18 Dose: 10 ml Documented by: Throat Lozenges (Cepacol) 1 lozenge PO PRN PRN PRN Reason: Sore Throat Last Admin: 05/22/20 05:25 Dose: 1 lozenge Documented by: Tranexamic Acid (Tranexamic Acid) 1,000 mg IV ONCE ONE Stop: 05/21/20 20:11 Last Admin: 05/21/20 21:15 Dose: Not Given Documented by: A/P Narrative A/P Narrative: A: *Left hip fracture: s/p ORIF (05/21) *SLE: On hydroxychloroquine *Hypothyroidism: Levothyroxine * P: -Dr. Castrejon for orthopedic surgery -Pain control -PT/ OT -monitor H&H -ppx: Postop per Ortho eliquis Full code Time Spent With Patient Time: Total time spent is greater than 50% in coordination of care (as documented) at patient's floor/unit and/or counseling patient: QUALITY VTE Deep Vein Thrombosis/Pulmonary Embolism Present on Admission: No
[2020-05-22] MEDS ORDERED: ACETAMINOPHEN 500 MG TABLET PO ONE (07:58)
[2020-05-22] MEDS ORDERED: ZOLPIDEM 5 MG TABLET PO PRN (07:59)
[2020-05-22] MEDS ORDERED: CLOBETASOL PROP OINT 0.05% TUBE 15GM TOPICAL PRN (07:59)
[2020-05-22] MEDS ORDERED: oxyCODONE HCL 5 MG TABLET PO ONE (08:04)
[2020-05-22] MEDS: ACETAMINOPHEN 325 MG TABLET PO SCH ×4 (08:29→22:05)
[2020-05-22] MEDS: APIXABAN 5 MG TABLET PO SCH ×3 (08:43→20:35)
[2020-05-22] MEDS: LEVOTHYROXINE 88 MCG TABLET PO SCH (08:44)
[2020-05-22] MEDS: DOCUSATE SODIUM 100 MG CAPSULE PO SCH ×2 (08:46→20:32)
[2020-05-22] MEDS: HYDROXYCHLOROQUINE 200 MG TABLET PO SCH ×2 (08:46→20:32)
[2020-05-22] MEDS: CALCIUM CARBONATE 500 MG TAB.CHEW CHEWED PRN ×2 (14:50→20:32)
[2020-05-22] MEDS: oxyCODONE HCL 5 MG TABLET PO PRN ×2 (16:12→20:32)
[2020-05-22] MEDS: NALTREXONE 3 MG PO SCH (20:34)
[2020-05-22] MEDS: ACETAMINOPHEN 500 MG TABLET PO ONE ×2 (22:05→22:10)
[2020-05-23] MEDS: oxyCODONE HCL 5 MG TABLET PO PRN ×3 (03:59→18:05)
[2020-05-23] MEDS: 0.9 % SODIUM CHLORIDE 10 ML SYRINGE IV SCH ×3 (06:18→20:16)
--- NOTE | 2020-05-23 06:21 | Orthopedic Progress Note ---
SUBJECTIVE Subjective Patient information: Note initiated : 05/23/20 at 6:17 am Service Date, if different from initiated Date: [] Patient: Amarilys George 74 y/o F admitted on 05/21/20 for Tripped, L hip pain. Chief Complaint: [No acute events overnight. Eliquis held last night as some drainage on dressing. ] Constitutional Vitals: Vital Signs Temp Pulse Resp BP Pulse Ox 98.6 F 79 16 109/59 91 05/23/20 04:02 05/23/20 04:02 05/23/20 04:02 05/23/20 04:02 05/23/20 04:02 Period Temp Pulse Resp BP Sys/Colón Pulse Ox Last 24 Hr 97.1 F-98.6 F 62-82 14-16 82-125/51-71 90-97 Intake and Output 05/22/20 05/23/20 05/23/20 21:59 05:59 13:59 Intake Total 1140 500 Output Total 1400 Balance 1140 -900 Weight 160 lb Intake & Output: Intake & Output 05/22/20 05/23/20 05/23/20 21:59 05:59 13:59 Intake Total 1140 500 Output Total 1400 Balance 1140 -900 Weight 160 lb Intake: IV 500 Sodium Chloride 0.9% 500 ml @ 500 Wide Open IV BOLUS ONE Rx#: [id number] Oral 640 500 Output: Urine Catheter Amount 1400 Other: Meal Dinner Percent of Meal Consumed 75% Feeding Ability Independent Urine Appearance Clear Uretheral (Paiz) Clear Urine Color Pale Uretheral (Paiz) Pale Additional findings Additional findings: General: awake and alert this AM. - left hip: spica dressing in place. inferior portion with strikethrough. NVIT otherwise. OBJ DATA Labs CBC & Chem 7: 05/22/20 05:14 05/22/20 05:14 Labs: Abnormal Lab Results 05/22/20 05/22/20 05/22/20 05:14 05:14 00:45 WBC 15.1 H Neut % (Auto) 86.9 H Lymph % (Auto) 7.1 L Lymph # (Auto) 1.08 L Absolute Neutrophils 13.13 H Anion Gap 7.0 L Glucose 123 H Lactate Dehydrogenase 236 H Total Protein 5.4 L Globulin 2.1 L Urine RBC 17 H Urine Mucus Few A 05/21/20 05/21/20 15:18 15:18 WBC 12.2 H Neut % (Auto) Lymph % (Auto) 14.8 L Lymph # (Auto) Absolute Neutrophils 9.35 H Anion Gap Glucose 134 H Lactate Dehydrogenase Total Protein Globulin Urine RBC Urine Mucus Meds: Medications Acetaminophen (Tylenol) 1,000 mg PO Q8 [facility] Last Admin: 05/22/20 22:05 Dose: 1,000 mg Documented by: Apixaban (Eliquis) 2.5 mg PO BID [facility] Last Admin: 05/22/20 20:35 Dose: Not Given Documented by: Calcium Carbonate/Glycine (Tums) 500 mg CHEWED Q4HP PRN PRN Reason: Dyspepsia Last Admin: 05/22/20 20:32 Dose: 500 mg Documented by: Clobetasol Propionate (Temovate Oint 0.05%) 1 dose TOPICAL BIDP PRN PRN Reason: Rash Docusate Sodium (Colace) 100 mg PO BID [facility] Last Admin: 05/22/20 20:32 Dose: 100 mg Documented by: Hydroxychloroquine Sulfate (Plaquenil) 200 mg PO BID [facility] Last Admin: 05/22/20 20:32 Dose: 200 mg Documented by: Potassium Chloride 40 meq/ (Dextrose) 520 mls @ 130 mls/hr IV UD PRN PRN Reason: Potassium < 3 Magnesium Sulfate (Magnesium Sulfate) 2 gm in 50 mls @ 50 mls/hr IV UD PRN PRN Reason: Magnesium </= 1.6 Levothyroxine Sodium (Synthroid) 88 mcg PO SuTuWeFrSa@0730 [facility] Last Admin: 05/22/20 08:44 Dose: 88 mcg Documented by: Levothyroxine Sodium (Synthroid) 44 mcg PO MoTh@0730 [facility] Methocarbamol (Robaxin) 750 mg PO Q6HP PRN PRN Reason: Muscle Spasm Last Admin: 05/22/20 11:15 Dose: 750 mg Documented by: Ondansetron HCl (Zofran) 4 mg IV Q4HP PRN PRN Reason: Nausea And Vomiting Oxycodone HCl (Roxicodone) 5 - 10 mg PO Q4HP PRN; Protocol PRN Reason: Per Pain Protocol Last Admin: 05/23/20 03:59 Dose: 5 mg Documented by: Compounded (Naltrexone 3 Mg Cap) 1 dose PO [facility] Last Admin: 05/22/20 20:34 Dose: Not Given Documented by: Polyethylene Glycol (Miralax) 17 gm PO DAILYP PRN PRN Reason: Constipation Potassium Chloride (Kdur) 40 meq PO UD PRN PRN Reason: Potssium is 3-3.5 Potassium Chloride (Kdur) 40 meq PO UD PRN PRN Reason: Potassium < 3 Senna (Senokot) 2 tab PO DAILYP PRN PRN Reason: Constipation Sodium Chloride (Saline Flush) 10 ml IV Q8 [facility] Last Admin: 05/22/20 20:34 Dose: 10 ml Documented by: Throat Lozenges (Cepacol) 1 lozenge PO PRN PRN PRN Reason: Sore Throat Last Admin: 05/22/20 14:50 Dose: 1 lozenge Documented by: Zolpidem Tartrate (Ambien) 10 mg PO HSP PRN PRN Reason: Insomnia A/P Assessment and plan (1) Closed fracture of left hip: Status: Acute Comment: POD 2 s/p left hip alonso arthroplasty -- dressing changed with dry dressing again. Significant decrease in drainage and mostly inferior. again a did get dizzy at the end. -- weight bearing as tolerated with posterior hip precautions x6 weeks ---- PT/OT -- changed to oral pain medications and muscle relaxer -- oral diet -- labs reviewed with h/h acceptable -- prophy: IS, eliquis - if ok hold AM dose and start tonight secondary to continued drainage, ambulation, foot pumps -- dispo: likely SNF per discussion this AM. had a UT and a shoulder arthroplasty limiting his ability to help much Qualifiers: Encounter type: initial encounter Qualified Code(s): S72.002A - Fracture of unspecified part of neck of left femur, initial encounter for closed fracture Time Spent With Patient Time: Total time spent is greater than 50% in coordination of care (as documented) at patient's floor/unit and/or counseling patient:
[2020-05-23 06:24] LABS: Basophils # (Auto) 0.09 K/mcL (0.00-0.20); Basophils % (Auto) 0.7 % (0.0-2.0); Eosinophils # (Auto) 0.23 K/mcL (0.00-0.70); Eosinophils % (Auto) 1.8 % (0.0-7.0); Hematocrit 35.6 % (36.0-48.0); Hemoglobin 10.9 g/dL (12.0-15.0); Lymphocytes # (Auto) 1.97 K/mcL (1.50-4.80); Lymphocytes % (Auto) 15.5 % (15.0-49.0); Mean Cell Volume 95.2 fL (80.0-100.0); Mean Corpuscular HGB Conc 30.6 g/dL (31.0-36.0); Mean Platelet Volume 9.3 fL (7.4-10.4); Monocytes # (Auto) 1.21 K/mcL (0.10-0.90); Monocytes % (Auto) 9.6 % (1.0-12.0); Neutrophils % (Auto) 72.4 % (38.0-78.0); Platelet Count 208 K/mcL (140-440); RBC 3.74 M/mcL (4.00-5.20); Red Cell Distribution Width 13.4 % (11.5-14.5); WBC 12.7 K/mcL (4.5-11.0)
[2020-05-23 06:58] LABS: Blood Urea Nitrogen 17 mg/dL (8-23); Carbon Dioxide 25 mmol/L (22-30); Chloride 106 mmol/L (96-108); Glomerular Filtration Rate 62; Glucose 85 mg/dL (70-105)
[2020-05-23] MEDS: ACETAMINOPHEN 325 MG TABLET PO SCH ×2 (07:29→14:46)
[2020-05-23] MEDS ORDERED: LEVOTHYROXINE 88 MCG TABLET PO SCH (07:30)
[2020-05-23] MEDS ORDERED: ACETAMINOPHEN 500 MG TABLET PO ONE (07:33)
--- NOTE | 2020-05-23 07:59 | Internal Med Progress Note ---
SUBJECTIVE Subjective Patient information: Note initiated : 05/23/20 at 7:57 am Service Date, if different from initiated Date: [] Patient: Amarilys George a 74 y/o F admitted on 05/21/20 for Tripped, L hip pain. Chief Complaint: [] Interval history: History of present illness: Ms. George is a 74 year old F Presents to the ED with left hip pain. Patient was outside when 200 pound dog bumped her and she fell onto gravel with immediate pain to the left hip. Evaluated in the ED and found to have a left hip fracture. Case was discussed with Dr. Castrejon who will come evaluate patient for surgical intervention. Patient pain is relatively well controlled in the ED on pain medications. No other acute complaints no chest pain shortness of breath. No stomach pain. 05/22 felt lightheaded this morning when she got up. no other complaints overnight events. 05/23 Eliquis held due to saturated dressing. Otherwise no issues other events overnight. No complaints. Review of Systems: denies headache/fever/chills/nausea/vomiting/chest or abdominal pain/cough/dyspnea/diarrhea. Otherwise see above. Constitutional Vitals: Vital Signs Temp Pulse Resp BP Pulse Ox 97.8 F 70 20 105/52 94 05/23/20 07:53 05/23/20 07:53 05/23/20 07:53 05/23/20 07:53 05/23/20 07:53 Period Temp Pulse Resp BP Sys/Colón Pulse Ox Last 24 Hr 97.1 F-98.6 F 70-82 16-20 98-125/52-71 90-97 Intake and Output 05/22/20 05/23/20 05/23/20 21:59 05:59 13:59 Intake Total 1140 500 Output Total 1400 Balance 1140 -900 Weight 72.575 kg Intake & Output: Intake & Output 05/22/20 05/23/20 05/23/20 21:59 05:59 13:59 Intake Total 1140 500 Output Total 1400 Balance 1140 -900 Weight 72.575 kg Intake: IV 500 Sodium Chloride 0.9% 500 ml @ 500 Wide Open IV BOLUS ONE Rx#: [id number] Oral 640 500 Output: Urine Catheter Amount 1400 Other: Meal Dinner Percent of Meal Consumed 75% Feeding Ability Independent Urine Appearance Clear Clear Uretheral (Paiz) Clear Clear Urine Color Pale Pale Uretheral (Paiz) Pale Pale Urine Odor Normal Exam: General: Alert, Awake, No acute Distress Eyes/N/T: EOMI, Head/Neck: neck supple, CV: RRR, No murmurs, Pulm: Clear b/l, no wheezing/rhonchi/rales Abd: soft, nontender, +BS x4 Ext: no clubbing/cyanosis/edema Neuro: Alert, no focal deficits, moves all extremities, Skin: warm/dry OBJ DATA Labs CBC & Chem 7: 05/23/20 05:23 05/23/20 05:23 Labs: Abnormal Lab Results 05/23/20 05/23/20 05/22/20 05:23 05:23 05:14 WBC 12.7 H RBC 3.74 L Hgb 10.9 L Hct 35.6 L MCHC 30.6 L Neut % (Auto) Lymph % (Auto) Lymph # (Auto) [place] # (Auto) 1.21 H Absolute Neutrophils 9.17 H Anion Gap 6.0 L 7.0 L Glucose 123 H Lactate Dehydrogenase 236 H Total Protein 5.4 L Globulin 2.1 L Urine RBC Urine Mucus 05/22/20 05/22/20 05/21/20 05:14 00:45 15:18 WBC 15.1 H RBC Hgb Hct MCHC Neut % (Auto) 86.9 H Lymph % (Auto) 7.1 L Lymph # (Auto) 1.08 L [place] # (Auto) Absolute Neutrophils 13.13 H Anion Gap Glucose 134 H Lactate Dehydrogenase Total Protein Globulin Urine RBC 17 H Urine Mucus Few A 05/21/20 15:18 WBC 12.2 H RBC Hgb Hct MCHC Neut % (Auto) Lymph % (Auto) 14.8 L Lymph # (Auto) [place] # (Auto) Absolute Neutrophils 9.35 H Anion Gap Glucose Lactate Dehydrogenase Total Protein Globulin Urine RBC Urine Mucus Meds: Medications Acetaminophen (Tylenol) 1,000 mg PO Q8 [facility] Last Admin: 05/23/20 07:29 Dose: Not Given Documented by: Apixaban (Eliquis) 2.5 mg PO BID [facility] Last Admin: 05/22/20 20:35 Dose: Not Given Documented by: Calcium Carbonate/Glycine (Tums) 500 mg CHEWED Q4HP PRN PRN Reason: Dyspepsia Last Admin: 05/22/20 20:32 Dose: 500 mg Documented by: Clobetasol Propionate (Temovate Oint 0.05%) 1 dose TOPICAL BIDP PRN PRN Reason: Rash Docusate Sodium (Colace) 100 mg PO BID [facility] Last Admin: 05/22/20 20:32 Dose: 100 mg Documented by: Hydroxychloroquine Sulfate (Plaquenil) 200 mg PO BID [facility] Last Admin: 05/22/20 20:32 Dose: 200 mg Documented by: Potassium Chloride 40 meq/ (Dextrose) 520 mls @ 130 mls/hr IV UD PRN PRN Reason: Potassium < 3 Magnesium Sulfate (Magnesium Sulfate) 2 gm in 50 mls @ 50 mls/hr IV UD PRN PRN Reason: Magnesium </= 1.6 Levothyroxine Sodium (Synthroid) 88 mcg PO SuTuWeFrSa@30 [facility] Last Admin: 05/22/20 08:44 Dose: 88 mcg Documented by: Levothyroxine Sodium (Synthroid) 44 mcg PO MoTh@30 [facility] Last Admin: 05/23/20 07:29 Dose: 44 mcg Documented by: Methocarbamol (Robaxin) 750 mg PO Q6HP PRN PRN Reason: Muscle Spasm Last Admin: 05/22/20 11:15 Dose: 750 mg Documented by: Ondansetron HCl (Zofran) 4 mg IV Q4HP PRN PRN Reason: Nausea And Vomiting Oxycodone HCl (Roxicodone) 5 - 10 mg PO Q4HP PRN; Protocol PRN Reason: Per Pain Protocol Last Admin: 05/23/20 03:59 Dose: 5 mg Documented by: Compounded (Naltrexone 3 Mg Cap) 1 dose PO HS [facility] Last Admin: 05/22/20 20:34 Dose: Not Given Documented by: Polyethylene Glycol (Miralax) 17 gm PO DAILYP PRN PRN Reason: Constipation Potassium Chloride (Kdur) 40 meq PO UD PRN PRN Reason: Potssium is 3-3.5 Potassium Chloride (Kdur) 40 meq PO UD PRN PRN Reason: Potassium < 3 Senna (Senokot) 2 tab PO DAILYP PRN PRN Reason: Constipation Sodium Chloride (Saline Flush) 10 ml IV Q8 [facility] Last Admin: 05/23/20 06:18 Dose: 10 ml Documented by: Throat Lozenges (Cepacol) 1 lozenge PO PRN PRN PRN Reason: Sore Throat Last Admin: 05/22/20 14:50 Dose: 1 lozenge Documented by: Zolpidem Tartrate (Ambien) 10 mg PO HSP PRN PRN Reason: Insomnia A/P Narrative A/P Narrative: A: *Left hip fracture: s/p ORIF (05/21) *post-op anemia: *SLE: On hydroxychloroquine *Hypothyroidism: Levothyroxine * P: -Dr. Castrejon for orthopedic surgery -Pain control -PT/ OT -monitor H&H -ppx: SCD's, Postop per Ortho eliquis (not started yet d/t saturated dressing) Full code Time Spent With Patient Time: Total time spent is greater than 50% in coordination of care (as documente d) at patient's floor/unit and/or counseling patient: QUALITY VTE Deep Vein Thrombosis/Pulmonary Embolism Present on Admission: No
[2020-05-23] MEDS: APIXABAN 5 MG TABLET PO SCH ×2 (08:46→20:17)
[2020-05-23] MEDS: HYDROXYCHLOROQUINE 200 MG TABLET PO SCH ×2 (08:54→20:17)
[2020-05-23] MEDS: DOCUSATE SODIUM 100 MG CAPSULE PO SCH ×2 (08:54→20:17)
--- NOTE | 2020-05-23 10:22 | Discharge Summary ---
Discharge Provider Provider Patient information: Note initiated : 05/23/20 at 10:21 am Service Date, if different from initiated Date: [] Patient: Amarilys Goerge 74 y/o F admitted on 05/21/20 for Tripped, L hip pain. Chief Complaint: [] Date of admission: 05/21/20 19:32 Discharge date: 05/24/20 Primary care physician: TENA Diaz Consults: 05/21/20 15:14 Consult to Physician [CONS] Stat Comment: Consulting Provider: Pepito Castrejon Reason For Exam: Physician to Consult 05/22/20 08:11 Consult to Physician [CONS] Routine Comment: Consulting Provider: Ortiz Mcdonald Reason For Exam: Physician to Consult Discharge Meds Discharge Medications Home Medications cholecalciferol (vitamin D3) 125 mcg (5,000 unit) tablet 5,000 unit PO HS 01/21/18 [History Confirmed 05/21/20 Last Taken 05/20/20 20:00] clobetasol 0.05 % scalp solution 1 applic TOPICAL BID PRN 01/21/18 [History Confirmed 05/21/20 Last Taken 05/17/20] selenium 200 mg PO HS 02/25/18 [History Confirmed 05/21/20 Last Taken 05/20/20 20:00] zinc 50 mg tablet 50 mg PO HS 02/25/18 [History Confirmed 05/21/20 Last Taken 05/20/20 20:00] C-naltrexone 3 mg PO HS #100 cap 07/08/19 [Rx Confirmed 05/21/20 Last Taken 05/19/20] halobetasol propionate 0.05 % topical cream 1 applic TOPICAL BID PRN 07/08/19 [History Confirmed 05/21/20 Last Taken 05/11/20] levothyroxine 88 mcg tablet 88 mcg PO .COMPLEX #90 tab 07/08/19 [Rx Confirmed Last Taken 05/21/20 07:00] zolpidem 10 mg tablet 10 mg PO QHS PRN #30 tab 12/22/19 [Rx Confirmed 05/21/20 Last Taken Unknown] hydroxychloroquine 200 mg tablet 200 mg PO BID #180 tab 04/01/20 [Rx Confirmed 05/21/20 Last Taken 05/20/20 20:00] [place]-3 Fish Oil 300 cap PO HS 05/21/20 [History Confirmed 05/21/20 Last Taken 05/20/20 20:00] aspirin 81 mg PO HS 05/21/20 [History Confirmed 05/21/20 Last Taken 05/20/20 20:00] docusate sodium 100 mg PO QDAY PRN 05/21/20 [History Confirmed 05/21/20 Last Taken 05/20/20 20:00] magnesium citrate 200 mg PO DAILY PRN 05/21/20 [History Confirmed 05/21/20 Last Taken 05/20/20 20:00] acetaminophen [Tylenol Extra Strength] 1,000 mg PO Q8 #90 tab 05/24/20 [Rx Last Taken Unknown] apixaban [Eliquis] 2.5 mg PO BID #64 tab 05/24/20 [Rx Last Taken Unknown] docusate sodium [DOK] 100 mg PO BID #60 cap 05/24/20 [Rx Last Taken Unknown] methocarbamol 750 mg PO Q6HP PRN #30 tab 05/24/20 [Rx Last Taken Unknown] oxycodone 5 - 10 mg PO Q4HP PRN #60 tab 05/24/20 [Rx Last Taken Unknown] COURSE Hospital Course Hospital course: History of present illness: Ms. George is a 74 year old F Presents to the ED with left hip pain. Patient was outside when 200 pound dog bumped her and she fell onto gravel with immediate pain to the left hip. Evaluated in the ED and found to have a left hip fracture. Case was discussed with Dr. Castrejon who will come evaluate patient for surgical intervention. Patient pain is relatively well controlled in the ED on pain medications. No other acute complaints no chest pain shortness of breath. No stomach pain. 05/22 felt lightheaded this morning when she got up. no other complaints overnight events. 05/23 Eliquis held due to saturated dressing. Otherwise no issues other events overnight. No complaints. stable for discharge 05/24 Doing well. No overnight events. H&H stable. A: *Left hip fracture: s/p ORIF (05/21) *post-op anemia: *SLE: On hydroxychloroquine *Hypothyroidism: Levothyroxine Discharge diagnosis: Left hip fracture postop anemia Secondary discharge diagnosis: Lupus hypothyroidism Time Spent with Patient Time attestation: Total time spent providing and/or coordinating discharge services: Time spent: Greater than 30 minutes EXAM Constitutional Vitals: Temp Pulse Resp BP Pulse Ox 97.8 F 70 20 105/52 94 05/23/20 07:53 05/23/20 07:53 05/23/20 07:53 05/23/20 07:53 05/23/20 07:53 General appearance: cooperative Discharge Data Data Completed and Pending Labs on day of discharge: Labs from last 24 hours 05/23/20 05/23/20 05:23 05:23 WBC 12.7 H RBC 3.74 L Hgb 10.9 L Hct 35.6 L MCV 95.2 MCH 29.1 MCHC 30.6 L RDW 13.4 Plt Count 208 MPV 9.3 Neut % (Auto) 72.4 Lymph % (Auto) 15.5 [place] % (Auto) 9.6 Eos % (Auto) 1.8 Baso % (Auto) 0.7 Lymph # (Auto) 1.97 [place] # (Auto) 1.21 H Eos # (Auto) 0.23 Baso # (Auto) 0.09 Absolute Neutrophils 9.17 H Sodium 137 Potassium 4.5 Chloride 106 Carbon Dioxide 25 Anion Gap 6.0 L BUN 17 Creatinine 0.9 GFR Calculation 62 Glucose 85 Calcium 9.0 Discharge Plan Patient/Caregiver Discharge Instructions Activity: increase activity as tolerated Diet: Regular Diet Prescriptions: New acetaminophen [Tylenol Extra Strength] 500 mg Tablet 1,000 mg PO Q8 Qty: 90 RF: 0 methocarbamol 750 mg Tablet 750 mg PO Q6HP PRN (Reason: Muscle Spasm) Qty: 30 RF: 0 docusate sodium [DOK] 100 mg Capsule 100 mg PO BID Qty: 60 RF: 0 oxycodone 5 mg Tablet 5 - 10 mg PO Q4HP PRN (Reason: Per Pain Protocol) Qty: 60 RF: 0 Eliquis 5 mg Tablet 2.5 mg PO BID Qty: 64 RF: 0 Continued halobetasol propionate 0.05 % cream 1 applic TOPICAL BID PRN (Reason: Rash) RF: 0 C-naltrexone capsule 3 mg PO HS Qty: 100 RF: 4 levothyroxine [Levoxyl] 88 mcg tablet 88 mcg PO .COMPLEX Qty: 90 RF: 4 hydroxychloroquine [Plaquenil] 200 mg tablet 200 mg PO BID Qty: 180 RF: 4 zolpidem [Ambien] 10 mg tablet 10 mg PO QHS PRN (Reason: insomnia) Qty: 30 RF: 5 cholecalciferol (vitamin D3) 5,000 unit tablet 5,000 unit PO HS RF: 0 clobetasol 0.05 % solution 1 applic TOPICAL BID PRN (Reason: Rash) RF: 0 selenium 200 mg PO HS RF: 0 zinc [Chelated Zinc] 50 mg tablet 50 mg PO HS RF: 0 aspirin 81 mg Tablet,Delayed Release (Dr/Ec) 81 mg PO HS RF: 0 docusate sodium 100 mg Capsule 100 mg PO QDAY PRN (Reason: Constipation) RF: 0 [place]-3 Fish Oil 300-1,000 mg Capsule 300 cap PO HS RF: 0 magnesium citrate 100 mg Capsule 200 mg PO DAILY PRN (Reason: Constipation) RF: 0 Other Ambulatory Orders: Walker (ONCE) Location: None Selected Ordered By: Pepito Castrejon Follow Up Plan Follow up with: Pepito Castrejon MD [Physician] - Shwetha Munoz ARNP [Primary Care Provider] - Patient Disposition: Xfer SNF Prognosis: Good Rehab Potential: Fair I certify that the patient requires SNF services: Yes Overall status at discharge: patient is progressing back to baseline Discharge Orders: Discharge Order (Routine); Ordered 05/24/20 Ordered By: Ortiz Mcdonald ON LICENSE OF [facility] VTE Deep Vein Thrombosis/Pulmonary Embolism Present on Admission: No
[2020-05-23] MEDS: ACETAMINOPHEN 500 MG TABLET PO SCH ×2 (14:59→21:58)
[2020-05-23] MEDS: NALTREXONE 3 MG PO SCH (20:17)
[2020-05-24] MEDS: ACETAMINOPHEN 500 MG TABLET PO SCH ×2 (05:17→13:09)
[2020-05-24] MEDS: 0.9 % SODIUM CHLORIDE 10 ML SYRINGE IV SCH (05:17)
[2020-05-24 06:24] LABS: Hematocrit 33.8 % (36.0-48.0); Hemoglobin 10.8 g/dL (12.0-15.0)
--- NOTE | 2020-05-24 06:36 | Orthopedic Progress Note ---
SUBJECTIVE Subjective Patient information: Note initiated : 05/24/20 at 6:31 am Service Date, if different from initiated Date: [] Patient: Amarilys George 74 y/o F admitted on 05/21/20 for Tripped, L hip pain. Chief Complaint: [No acute events overnight. Pain is controlled. No shortness of breath/chest pain] Constitutional Vitals: Vital Signs Temp Pulse Resp BP Pulse Ox 98.0 F 73 16 131/74 93 05/24/20 03:17 05/24/20 03:17 05/24/20 03:17 05/24/20 03:17 05/24/20 03:17 Period Temp Pulse Resp BP Sys/Colón Pulse Ox Last 24 Hr 97.8 F-98.8 F 70-88 16-20 105-134/52-77 91-95 Intake and Output 05/23/20 05/24/20 05/24/20 21:59 05:59 13:59 Intake Total 600 500 Output Total 1200 150 Balance -600 350 Weight 155 lb Intake & Output: Intake & Output 05/23/20 05/24/20 05/24/20 21:59 05:59 13:59 Intake Total 600 500 Output Total 1200 150 Balance -600 350 Weight 155 lb Intake: Oral 600 500 Output: Urine Catheter Amount 950 Void Amount 250 150 Other: Urine Appearance Clear Clear Uretheral (Paiz) Clear Urine Color Bright Yellow Bright Yellow Uretheral (Paiz) Pale Urine Odor Normal # Voids 1 Additional findings Additional findings: general: awake alert and oriented Left hip: dressing in place, clean, dry and intact. foot warm well perfused. OBJ DATA Labs CBC & Chem 7: 05/24/20 05:26 05/23/20 05:23 Labs: Abnormal Lab Results 05/24/20 05/23/20 05/23/20 05:26 05:23 05:23 WBC 12.7 H RBC 3.74 L Hgb 10.8 L 10.9 L Hct 33.8 L 35.6 L MCHC 30.6 L Neut % (Auto) Lymph % (Auto) Lymph # (Auto) [place] # (Auto) 1.21 H Absolute Neutrophils 9.17 H Anion Gap 6.0 L Glucose Lactate Dehydrogenase Total Protein Globulin Urine RBC Urine Mucus 05/22/20 05/22/20 05/22/20 05:14 05:14 00:45 WBC 15.1 H RBC Hgb Hct MCHC Neut % (Auto) 86.9 H Lymph % (Auto) 7.1 L Lymph # (Auto) 1.08 L [place] # (Auto) Absolute Neutrophils 13.13 H Anion Gap 7.0 L Glucose 123 H Lactate Dehydrogenase 236 H Total Protein 5.4 L Globulin 2.1 L Urine RBC 17 H Urine Mucus Few A 05/21/20 05/21/20 15:18 15:18 WBC 12.2 H RBC Hgb Hct MCHC Neut % (Auto) Lymph % (Auto) 14.8 L Lymph # (Auto) [place] # (Auto) Absolute Neutrophils 9.35 H Anion Gap Glucose 134 H Lactate Dehydrogenase Total Protein Globulin Urine RBC Urine Mucus Meds: Medications Acetaminophen (Tylenol) 1,000 mg PO Q8 [facility] Last Admin: 05/24/20 05:17 Dose: 1,000 mg Documented by: Apixaban (Eliquis) 2.5 mg PO BID [facility] Last Admin: 05/23/20 20:17 Dose: Not Given Documented by: Calcium Carbonate/Glycine (Tums) 500 mg CHEWED Q4HP PRN PRN Reason: Dyspepsia Last Admin: 05/22/20 20:32 Dose: 500 mg Documented by: Clobetasol Propionate (Temovate Oint 0.05%) 1 dose TOPICAL BIDP PRN PRN Reason: Rash Docusate Sodium (Colace) 100 mg PO BID [facility] Last Admin: 05/23/20 20:17 Dose: 100 mg Documented by: Hydroxychloroquine Sulfate (Plaquenil) 200 mg PO BID [facility] Last Admin: 05/23/20 20:17 Dose: 200 mg Documented by: Potassium Chloride 40 meq/ (Dextrose) 520 mls @ 130 mls/hr IV UD PRN PRN Reason: Potassium < 3 Magnesium Sulfate (Magnesium Sulfate) 2 gm in 50 mls @ 50 mls/hr IV UD PRN PRN Reason: Magnesium </= 1.6 Levothyroxine Sodium (Synthroid) 88 mcg PO SuTuWeFrSa@0730 [facility] Last Admin: 05/22/20 08:44 Dose: 88 mcg Documented by: Levothyroxine Sodium (Synthroid) 44 mcg PO MoTh@0730 [facility] Last Admin: 05/23/20 07:29 Dose: 44 mcg Documented by: Methocarbamol (Robaxin) 750 mg PO Q6HP PRN PRN Reason: Muscle Spasm Last Admin: 05/22/20 11:15 Dose: 750 mg Documented by: Ondansetron HCl (Zofran) 4 mg IV Q4HP PRN PRN Reason: Nausea And Vomiting Oxycodone HCl (Roxicodone) 5 - 10 mg PO Q4HP PRN; Protocol PRN Reason: Per Pain Protocol Last Admin: 05/23/20 18:05 Dose: 5 mg Documented by: Compounded (Naltrexone 3 Mg Cap) 1 dose PO HS [facility] Last Admin: 05/23/20 20:17 Dose: Not Given Documented by: Polyethylene Glycol (Miralax) 17 gm PO DAILYP PRN PRN Reason: Constipation Last Admin: 05/23/20 08:53 Dose: 17 gm Documented by: Potassium Chloride (Kdur) 40 meq PO UD PRN PRN Reason: Potssium is 3-3.5 Potassium Chloride (Kdur) 40 meq PO UD PRN PRN Reason: Potassium < 3 Senna (Senokot) 2 tab PO DAILYP PRN PRN Reason: Constipation Sodium Chloride (Saline Flush) 10 ml IV Q8 [facility] Last Admin: 05/24/20 05:17 Dose: 10 ml Documented by: Throat Lozenges (Cepacol) 1 lozenge PO PRN PRN PRN Reason: Sore Throat Last Admin: 05/22/20 14:50 Dose: 1 lozenge Documented by: Zolpidem Tartrate (Ambien) 10 mg PO HSP PRN PRN Reason: Insomnia A/P Assessment and plan (1) Closed fracture of left hip: Status: Acute Comment: POD 3 s/p left hip alonso arthroplasty -- dressing is clean and dry this AM. ---- change dressing to silver dressing prior to discharge to SNF -- weight bearing as tolerated with posterior hip precautions x6 weeks ---- PT/OT -- oral pain medications and muscle relaxer -- oral diet -- H/H is stable from yesterday, hemodynamically stable -- prophy: IS, eliquis,ambulation, foot pumps -- dispo: OK to d/c to SNF from ortho standpoint. Change dressing prior to discharge, f/u with ortho on or May. OK to shower with silver dressing in place. Should leave it in place until follow up with orthopedics. Qualifiers: Encounter type: initial encounter Qualified Code(s): S72.002A - Fracture of unspecified part of neck of left femur, initial encounter for closed fracture Time Spent With Patient Time: Total time spent is greater than 50% in coordination of care (as doc umented) at patient's floor/unit and/or counseling patient:
[2020-05-24] MEDS: LEVOTHYROXINE 88 MCG TABLET PO SCH (06:50)
--- NOTE | 2020-05-24 07:35 | Operative Note ---
DATE OF OPERATION: 05/21/2020 POSTOPERATIVE DIAGNOSIS: Left displaced femoral neck fracture. POSTOPERATIVE DIAGNOSIS: Left displaced femoral neck fracture. PROCEDURE PERFORMED: Left hip hemiarthroplasty. SURGEON: Ozzy Castrejon MD MANAGER OF ENGINEERING: Julian Clark PA-C. This providers expertise and technical skill were required throughout the case. The SEND[facility] assisted with preoperative coordination, intraoperative deep retraction, hip reduction and dislocation, wound closure, and dressing and splint application, as well as postoperative documentation and care coordination. ANESTHESIA: General. IV FLUIDS: 1100 mL lactate Ringer's. ANTIBIOTICS: 2 grams Ancef. ESTIMATED BLOOD LOSS: 275 mL. PATHOLOGY: None; however, I did excise a portion of the femoral neck as well as the femoral head, which appeared nonpathological. OPERATIVE FINDINGS: Displaced femoral neck fracture with minimal underlying arthritis of the acetabulum. IMPLANTS: DePuy size 3 Actis stem, standard neck size 45 head with a 0 insert, noncemented. INDICATIONS: The patient is a 74-year-old female who sustained a ground level fall earlier this afternoon, resulting in a displaced femoral neck fracture. She was seen in the Emergency Department and I discussed her injury with her as well as treatment options including operative and nonoperative treatment with operative correction being the recommended path of treatment. Also recommended a left hip hemiarthroplasty given the fracture will not be amenable to repair. After discussion of risks, benefits, and postoperative expectations and rehabilitation course, she understands and does want to proceed in this fashion. DESCRIPTION OF PROCEDURE: Patient was met in the preoperative holding area where site was verified and marked with the patient's input. She was subsequently taken back to the operating room where she underwent successful anesthesia via an endotracheal tube. She was placed in lateral decubitus position with the left side up. Her left lower extremity was cleaned with a Hibiclens wipes and then prepped and draped in the usual sterile fashion with ChloraPrep. A surgical timeout was performed to verify the patient identity, correct procedure being performed, and correct extremity being operated on and everybody was in agreement. Approximately a 10 cm incision was made over the tip of the greater trochanter and posterior middle third border, curving posteriorly proximally. Skin was sharply incised. Hemostasis was obtained. Blunt dissection was taken down to the IT band and tensor fascia magnolia. This was incised along the middle third/posterior third border. We placed a self-retaining retractor. At this point, the posterior structures including the external rotators, the piriformis was removed from the posterior aspect of the femoral neck. The capsule was identified and incised in line with the neck. The femoral head was then removed in its entirety. It was sized to a 45mm head . Once this was complete, I did ensure all bony fragments were removed from the acetabulum itself. We made our femoral neck cut. A 15 mm femoral neck cut was made, again ensuring all bony particles were removed from the joint. I did irrigate several times with IrriSept throughout the case. At this point, utilizing the femoral neck elevator, I exposed the neck utilizing a box truck owner operator, canal finder and lateralizer to gain entry into the canal. We broached up to a size 3 with Actis broach with good interference fit and good bone overall, good rotational stability and it did match the posterior cortex for version. Once this was placed, we placed a standard neck with a 0 insert for the head ball with a 45 and reduced the joint. It did reproduce a stable joint, did not appear to be too tight as we were able to get full extension as well as able to flex to 90 degrees and internally rotate to, easily, 60 degrees prior to any subluxation. I felt this was a stable construct; however, a bit short. Thus, I attempted to place a +5, which was unable to reduce and also we tried a high offset neck, which again made the reduction much more difficult. Given that, I elected to proceed with a stable construct with a standard neck and a +0 insert. At this point, through all our trial implants, we placed our final implants and again brought it through range of motion with a stable construct. I did pulse lavage throughout the joint as well as IrriSept. At this point, the posterior capsule was closed with 0 Ethibond for a total of 4 sutures with good reapproximation of the capsule. The IT band was closed with #1 Vicryl at the musculotendinous junction and then a Stratafix was run distally and then back proximally. The most proximal portion was overlying the muscle itself and closed with 2-[address] vancomycin powder deep in the wound as well as the superficial layer. The fat layer was closed with 2-0 Vicryl, subcutaneous tissue with 3-0 Vicryl and skin closed with aury. The skin was then cleaned and dried. Xeroform was placed along with fluffs and Medipore tape to secure the dressing. The patient awoke from anesthesia and transferred to PACU in stable condition. POSTOPERATIVE PLAN: The patient will be admitted back to the floor. She will use an adduction pillow for 6 weeks. She will undergo rehabilitation, see her disposition. [email or web address] Job ID: [id number] Doc ID: [id number] Ozzy Castrejon MD [facility]
[2020-05-24] MEDS: HYDROXYCHLOROQUINE 200 MG TABLET PO SCH (08:29)
[2020-05-24] MEDS: DOCUSATE SODIUM 100 MG CAPSULE PO SCH (08:29)
[2020-05-24] MEDS ORDERED: ENOXAPARIN 40 MG/0.4 ML SYRINGE SQ SCH (09:00)
[2020-05-24] MEDS: APIXABAN 5 MG TABLET PO SCH (09:35)
== END 2020-05-24 13:27 | DRG 522 ==
LOC: ED 14:04 → SUR 16:47 → MEDSUR 19:32
PROVIDERS: ADMIT Internal Medicine; ATTEND Internal Medicine